=== PATIENT | male | born 1995 | race Caucasian/White ===

== ENCOUNTER 2021-12-05 10:39 | Emergency (ER) | payer SELFPAY ==
[2021-12-05 11:46] VITALS: BP 134/94; PULSE 88; RESP 18; TEMP 36.8; O2SAT 100
--- NOTE | 2021-12-05 12:06 | ED.GENADULT ---
HPI - General Adult General Chief complaint: Unspecified Stated complaint: ST Time Seen by Provider: 12/05/21 11:24 History of Present Illness HPI narrative: 26-year-old male here for evaluation of sore throat over the past 3 days. Patient states the pain is progressed in severity and today he has had difficulty swallowing his own secretions in addition to any p.o. has attempted ibuprofen with no relief of his pain. Patient did have subjective fevers yesterday but has not taken his temperature. Denies sick contacts, nausea or vomiting, vocal changes. Related Data Allergies Allergy/AdvReac Type Severity Reaction Status Date / Time No Known Allergies Allergy Verified 12/05/21 12:40 Review of Systems Review of Systems: Gen.: Denies fevers or chills Eyes: Denies eye pain or visual change ENT: Reports sore throat. Denies congestion Respiratory: Denies shortness of breath or cough CV: Denies chest pain or palpitations GI: Denies abdominal pain nausea, emesis or diarrhea denies burning, urgency, frequency or hematuria Musculoskeletal: Denies back pain or muscle pain Neuro: Denies numbness, tingling, weakness or focal weakness Skin: Denies rash Except as documented, all other systems reviewed and negative Exam Narrative: APPEARANCE: Well appearing, no pain in distress, well-nourished. Head: Normocephalic and atraumatic. EYES: PERRLA/EOMI, conjunctivae clear NOSE: No nasal drainage EARS: External ear normal in appearance THROAT: Oropharynx is clear. Mucous membranes are moist. NECK: Tonsils are 3+, kissing, with patchy exudates throughout, no uvular deviation. Tolerating secretions. No visible BEVEL POLISHER or RTA. Full range of motion in neck. RESPIRATORY: Airway patent, respirations nonlabored. Clear to auscultation bilaterally, no rales, rhonchi, wheezing. CARDIOVASCULAR: Regular rate and rhythm without murmurs, rubs, or gallops. ABDOMINAL: Normoactive bowel sounds. Soft, nontender, nondistended. No rebound tenderness or guarding. MUSCULOSKELETAL: Extremities are warm and well-perfused. Moves all extremities well. No edema. NEURO: Normal speech. No focal neurologic deficits. SKIN: Skin is warm and dry. No rashes. PSYCHIATRIC: Normal affect/mood. Course Vital Signs Vital signs: Vital Signs Temperature 98.3 F 12/05/21 11:46 Pulse Rate 88 12/05/21 11:46 Respiratory Rate 18 12/05/21 11:46 Blood Pressure 134/94 H 12/05/21 11:46 Pulse Oximetry 100 12/05/21 11:46 Temperature 98.6 F 12/05/21 14:27 Pulse Rate 80 12/05/21 14:27 Respiratory Rate 16 12/05/21 14:27 Blood Pressure 125/84 12/05/21 14:27 Pulse Oximetry 98 12/05/21 14:27 Medical Decision Making MDM Narrative Medical decision making narrative: 26-year-old male here for evaluation of sore throat over the past several days, progressing in severity, unable to tolerate p.o. today. Tonsils are 3+ almost kissing with patchy exudates throughout consistent with strep. Rapid test negative but sent to culture given high clinical suspicion. He has full range of motion in his neck, has no uvular deviation, so doubt BEVEL POLISHER/RTA. Patient was given steroids, antibiotics and fluids in the ED with marked improvement of his symptoms, patient feels asymptomatic and ready to go home. He was able to tolerate p.o.. We will treat for strep throat with antibiotics and provide short course of steroids. He was given strict return precautions to return to the ED and he voiced understanding. Vital Signs Vital Signs: Vital Signs Temperature 98.3 F 12/05/21 11:46 Pulse Rate 88 12/05/21 11:46 Respiratory Rate 18 12/05/21 11:46 Blood Pressure 134/94 H 12/05/21 11:46 Pulse Oximetry 100 12/05/21 11:46 Temperature 98.6 F 12/05/21 14:27 Pulse Rate 80 12/05/21 14:27 Respiratory Rate 16 12/05/21 14:27 Blood Pressure 125/84 12/05/21 14:27 Pulse Oximetry 98 12/05/21 14:27 Lab Data Result diagrams: 12/05/21 12:46
[2021-12-05] MEDS: SODIUM CHLORIDE 0.9% IV 1,000 ML 999 ML IV CONT (12:53)
[2021-12-05] MEDS: methylPREDNISolone SOD SUCC 125 MG VIAL IV PUSH (12:53)
[2021-12-05] MEDS: KETOROLAC 15 MG/ML VIAL (*BKC) IV PUSH (12:53)
[2021-12-05 13:11] LABS: Basophils Percent Auto 0.2 % (0.2-1.2); Eosinophils Percent Auto 0.3 % (0-4.4); Hematocrit 46.4 % (42.0-52.0); Hemoglobin 15.1 g/dL (14.0-18.0); Immature Granulocyte Absolute 0.02 K/mm3 (0.00-0.031); Immature Granulocyte Percent A 0.2 % (0-0.5); Lymphocytes Absolute Auto 1.64 K/mm3 (0.9-3.2); Lymphocytes Percent Auto 18.7 % (18.3-44.2); Mean Corpuscular HGB Conc 32.5 g/dl (32-36); Mean Corpuscular Hemoglobin 29.2 pg (26-34); Mean Corpuscular Volume 89.7 fl (80-100); Mean Platelet Volume 9.2 fl (7.4-10.4); Monocytes Absolute Auto 0.9 K/mm3 (0.1-0.6); Monocytes Percent Auto 10.1 % (2.6-8.5); Neutrophils Absolute Auto 6.2 K/mm3 (1.3-6.7); Neutrophils Percent Auto 70.5 % (45.5-73.1); Platelet Count Result 285 k/mm3 (150-375); Red Blood Count 5.17 M/mm3 (4.6-6.20); White Blood Count 8.8 K/mm3 (4.5-10.0)
[2021-12-05 13:27] LABS: Alanine Aminotransferase 172 U/L (6-50); Alkaline Phosphatase 101 U/L (38-126); Anion Gap 11 mmol/L (8-16); Aspartate Amino Transferase 105 U/L (17-59); Bilirubin,Total 0.2 mg/dL (0.2-1.3); Blood Urea Nitrogen 10 mg/dL (9-20); Calcium 8.4 mg/dL (8.4-10.2); Carbon Dioxide 29 mmol/L (22-30); Chloride 96 mmol/L (98-107); Estimated CRCL calculation 123 ml/min; Estimated Glomerular Filt Rate > 60; Glucose 83 mg/dL (65-110); Sodium 136 mmol/L (137-145)
[2021-12-05] MEDS: AMPICILLIN SULB 1.5 GM/NS 50ML 1.5 GM/50 ML VIAL IVPB (13:36)
[2021-12-05 14:27] VITALS: BP 125/84; PULSE 80; RESP 16; TEMP 37; O2SAT 98
== END 2021-12-05 14:28 | disposition home or self-care (01) ==
PROVIDERS: Physician Assistant; Emergency Provider Emergency Medicine
DX: J02.0 Streptococcal pharyngitis (principal)
CPT/HCPCS: 36415; 80053; 85025; 87081; 87880; 96361; 96365; 96375; 99284; J0295; J1885; J2930; J7030